=== PATIENT | male | born 1985 | race Caucasian/White ===

== ENCOUNTER 2024-11-17 17:23 | Emergency (ER) | payer BC, SELFPAY ==
[2024-11-17 17:25] VITALS: BP 128/100; PULSE 65; RESP 18; TEMP 36.4; O2SAT 98; BMI 33.5
--- NOTE | 2024-11-17 19:21 | EX.ED.GENINJ ---
HPI History of Present Illness Chief Complaint: Laceration Informant: patient Narrative Narrative: [id number] male tablesaw injury shortly prior to arrival. Injury left thumb. Tetanus unknown. No anticoagulants. Bleeding controlled. No other injuries. History of injury requiring suturing in the past. Tetanus Immunization: Unknown PFSH PFSH Medical History no medical history Allergy/AdvReac Type Severity Reaction Status Date / Time bee venom protein (honey Allergy Anaphylaxis Verified 11/17/24 17:25 bee) (bee sting) Family History no significant family his Surgical History no surgical history Social History Smoking Status: Never smoker ROS ROS ED Constitutional Constitutional ED: Denies chills, fever(s) or sweats Gastrointestinal Gastrointestinal: Denies nausea or vomiting Musculoskeletal Musculoskeletal: Reports extremity pain; Denies back pain Integumentary Reports wounds Neurologic Neurologic: Denies paresthesias EXAM Physical Exam Const Vital Signs: 11/17/24 17:25 Temperature 97.6 F L Temperature Source Temporal Pulse Rate 65 Respiratory Rate 18 Blood Pressure 128/100 H Blood Pressure Mean 109 Pulse Ox 98 Oxygen Delivery Method Room Air Positive well nourished and well developed General Appearance ED: well developed and NAD HEENT Reports moist mucous membranes normocephalic and atraumatic Eyes General Eye ED: Yes normal appearance of both eyes Neck full ROM Chest Wall Chest: Negative for tenderness Resp normal respiratory effort and normal air movement Effort and Inspection: symmetric chest movement; Negative for respiratory distress Cardio regular rate, regular rhythm and no murmurs Peripheral Pulses: pulses 2+ throughout GI normal to inspection, nondistended, normoactive bowel sounds and non-tender Palpation: Negative for guarding or rebound tenderness present Extremity Extremity Narrative: Left hand: Thumb: 2 cm laceration volar aspect distal phalanx, no active bleeding. No nailbed involvement. No joint involvement. General Extremety ED: Yes tenderness; Negative for edema General Extremity: Negative for edema Neuro oriented x3 and no sensory deficits noted Sensorium / Orientation: awake and alert Skin Skin Narrative: See above MDM MDM MDM Narrative Medical decision making narrative: Interventions / MDM: Differential diagnosis: Thumb laceration, tetanus vaccination Diagnosis considered but do not suspect: Bony injury however x-ray negative My EKG interpretation: N/A Imaging independently reviewed and interpreted by myself: 3 view left thumb x-ray: No fracture, no radiopaque foreign bodies. External documents reviewed: N/A Test considered but not ordered:N/A ED course: Patient laceration left thigh no active bleeding. X-ray obtained. Tetanus updated. X-ray negative for any bony injuries. Laceration repaired, wound care discussed with the patient. Outpatient follow-up for suture removal. Procedure note: Laceration repair: Verbal consent. Normal sterile conditions. 1.5 cc 1% lidocaine without epinephrine used for Ge metacarpal block on the ulnar aspect of the thumb. Additional 0.5 cc used for the wound region. Wound was thoroughly flushed rinse cup of saline. Additional wet gauze used to clean. No deep laceration noted. There is grinding avulsion of the skin more proximally. There was enough skin distally to close using a total of 2, 5-0 nylon sutures with good approximation. No active bleeding. Bacitracin placed myself dressing and AlumaFoam AP splint was placed. Patient tolerated the procedure well. Re-evaluation: stable Disposition discussed with patient/family/significant other: Patient Case discussed with consulting clinician: N/A This note was generated with [employer] dictation software. It may contain incorrect words, spelling, and punctuation that were not noted in checking the note before signing. Radiography Diagnostic Testing: Clinical Impression(s) from Imaging Studies Finger X-Ray 11/17/24 19:23 IMPRESSION: No acute osseous abnormality. Reading Location: [facility] Discharge Plan Triage Chief Complaint: Laceration ED Provider: Ravinder Nam Dx/Rx/DC Orders Clinical Impression: Laceration of left thumb, Tetanus toxoid vaccination administered at current visit Instructions: ED Laceration, Hand: All Closures Primary Care Provider: Care Physician,No Primary Referrals: Care Physician,No Primary [Primary Care Provider] - Activity Restrictions/Additional Instructions: 2 sutures placed. Wound care as discussed. Use splint for protection. Follow-up your doctor 10 to 14 days for suture removal. Print Language: Citizen Of [place] Disposition Disposition: Home, Self Care Discharge Date/Time: 11/17/24 20:57
--- NOTE | 2024-11-17 19:23 | RAD_ITS ---
PROCEDURE: FINGER(S) MIN 2 VIEWS REASON FOR EXAM: Laceration injury. Injury. TECHNIQUE: 3 view(s) of the left thumb COMPARISON: None FINDINGS: No acute fracture or dislocation is identified. Joint spacing is preserved. No periosteal reaction or osseous erosive changes are present. No radiopaque foreign body is seen. RAD/Finger(s) Min 2 Views IMPRESSION: No acute osseous abnormality. Reading Location: [facility]
[2024-11-17] MEDS: Lidocaine 1% (20 ml mdv) 20 ML Vial INFILT (19:48)
[2024-11-17] MEDS: Diphth,Pertuss(Acell),Tet Vac 0.5 ML Vial IM (19:48)
== END 2024-11-17 20:57 | disposition home or self-care (01) ==
PROVIDERS: Emergency Provider Emergency Medicine; Visit Provider Emergency Medicine
DX: S61.012A Laceration without foreign body of left thumb without damage to nail, initial encounter (principal); Z23 Encounter for immunization; W27.8XXA Contact with other nonpowered hand tool, initial encounter
CPT/HCPCS: 12001; 73140; 90471; 90715; 99283